=== PATIENT | male | born 1965 | race Caucasian/White ===

== ENCOUNTER → 2018-05-26 | Outpatient (CLI) | payer OTHER | LOC: BMCIMAGING 10:43 | PROVIDERS: ATTEND Physician Assistant | DX: M17.12 Unilateral primary osteoarthritis, left knee (principal); M25.561 Pain in right knee ==

== ENCOUNTER 2018-05-27 13:56 | Emergency (ER) | payer OTHER ==
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
[2018-05-27] MEDS ORDERED: DIAZEPAM 5 MG/ML 1 ML SYR IVP ONE (15:54)
[2018-05-27] MEDS ORDERED: HYDROmorphONE/DILAUDID 2 MG/ML INJ IVP ONE (15:54)
[2018-05-27] MEDS ORDERED: OXYCODONE/APAP 5/325MG PREPACK#4 BTL TAKEHOME ONE ×2 (17:32→20:03)
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
[2018-05-27 20:22] VITALS: BP 118/74
== END 2018-05-27 20:37 | disposition home or self-care (01) ==
DX: S32.010A Wedge compression fracture of first lumbar vertebra, initial encounter for closed fracture (principal); W16.812A Jumping or diving into other water striking water surface causing other injury, initial encounter; Y92.828 Other wilderness area as the place of occurrence of the external cause; Y93.39 Activity, other involving climbing, rappelling and jumping off; Y99.9 Unspecified external cause status
CPT/HCPCS: 96374; J1170; J3360